=== PATIENT | female | born 1940 | race Caucasian/White ===

== ENCOUNTER 2016-11-06 07:35 | Day surgery (SDC) | payer OTHER ==
[2016-11-02 16:25] VITALS: BMI 24.4
[2016-11-06] MEDS ORDERED: POVIDONE-IODINE 5% OPHTHALMIC PREP 30 ML SOLUTION ONE (09:14)
[2016-11-06] MEDS ORDERED: BACITRACIN 3.5 GM OPTHALMIC OINT TUBE ONE (09:14)
[2016-11-06] MEDS ORDERED: MIDAZOLAM HCL 2 MG/2 ML SINGLE DOSE VIAL ONE (09:23)
[2016-11-06] MEDS ORDERED: PROPOFOL 20 ML ONE (09:23)
[2016-11-06] MEDS ORDERED: DEXAMETHASONE SOD PHOSPHATE 4 MG/1 ML VIAL ONE (09:23)
[2016-11-06] MEDS ORDERED: ceFAZolin SODIUM 1 GM VIAL ONE (09:23)
[2016-11-06] MEDS ORDERED: ONDANSETRON 4 MG/2 ML VIAL ONE ×2 (09:23→12:12)
[2016-11-06] MEDS ORDERED: ACETAMINOPHEN 500 MG TABLET (FP) PO PRN (11:30)
[2016-11-06] MEDS ORDERED: oxyCODONE HCL 5 MG TABLET PO PRN (11:31)
[2016-11-06 12:00] VITALS: PULSE 65
[2016-11-06 12:53] VITALS: TEMP 98.1
[2016-11-06 13:29] VITALS: BP 128/65
--- NOTE | 2016-11-06 13:59 | OP ---
DATE OF OPERATION: 11/06/2016 PREOPERATIVE DIAGNOSIS: Cicatricial entropion, right lower lid, with keratitis. POSTOPERATIVE DIAGNOSIS: Cicatricial entropion, right lower lid, with keratitis. PROCEDURE: 1. Marginal lid split, right lower lid. 2. Anterior lamellar recession, right lower lid. SURGEON: Marielos Pierre MD ANESTHESIA: Local sedation. COMPLICATIONS: None. ESTIMATED BLOOD LOSS: 2 to 3 mL. OPERATIVE REPORT: Patient brought to the operating room and placed on the operating room table. Vital signs monitored by Anesthesia. Tetracaine was placed on both eyes. Timeout was performed. Patient was given intravenous sedation, 50:50 mixture of 2% Xylocaine with 1:100,000 epinephrine and 0.5% Marcaine was injected subcutaneously in the right lower lid for a total of 3 to 4 mL. Massage was applied for hemostasis. Patient was prepped and draped in the usual sterile fashion exposing both eyes. The marginal area of the eyelid had been marked where the meibomian glands were and this was now incised with a No. 11 blade through it, the skin muscle layer from the tarsal conjunctival layer, avoiding the posterior surface. Dissection was carried down along the anterior tarsal surface and then underneath the orbicularis in the preseptal plane, recessing the anterior lamella inferiorly. The anterior lamella was now recessed and secured in position with 2 rows of double-armed 5-0 chromic sutures, 1 going through the full-thickness anterior lamella and grasping the septum inferiorly and the 2nd going through the lash line in mattress fashion and grabbing and suturing it to the septum approximately 4 mm or so below the posterior lamella. Four sutures in the inferior portion of the eye were placed and 6 sutures across the lash line were placed, recessing the anterior lash line and creating a new separation to granulate in. Bacitracin ointment was placed on the eyelid, and the patient was taken to the recovery room in stable condition. It was noted that there was no significant excess laxity in the lower lid. MARIELOS PIERRE M.D. [id number]
== END 2016-11-06 13:31 | disposition home or self-care (01) ==
LOC: FASU 07:35 → EDBD 09:00 → FASU 13:31
PROVIDERS: ATTEND Ophthalmology
PROC: 08SQ0ZZ Reposition Right Lower Eyelid, Open Approach (ICD-10-PCS; principal; 2016-11-06 09:57)
DX: H02.012 Cicatricial entropion of right lower eyelid (principal)
CPT/HCPCS: 87070; 87205; 94760